=== PATIENT | female | born 1960 | race African-American/Black ===

== ENCOUNTER 2017-08-25 08:53 | Emergency (ER) | payer MEDICARE ==
[~2017-08-25] VITALS: Ht 162.6 cm; Wt 63.5 kg
--- NOTE | 2017-08-25 08:58 | NUR ---
C/O NECK, BACK, LEFT ELBOW, BILATERAL KNEE PAIN S/P SLIPPED AND FALL AT [facility] 2 HRS AGO. NO KO. A/OX4, NAD VSS RR EVEN AND UNLABORED. PENDING ER M DEVALUATION
[2017-08-25] MEDS ORDERED: IBUPROFEN 600 MG TABLET PO ONE ×2 (10:00→10:01)
--- NOTE | 2017-08-25 10:31 | NUR ---
PT. VERBALIZED UNDERSTANDING OF AFTERCARE INSTRUCTIONS.GIVEN MOTRIN 600 MG POPatient discharged to home in stable condition. Written and verbal after care instructions given. Patient verbalizes understanding of instruction.
[2017-08-25 10:34] VITALS: BP 134/68
== END 2017-08-25 10:34 | disposition home or self-care (01) ==
LOC: ER 08:59
DX: S13.9XXA Sprain of joints and ligaments of unspecified parts of neck, initial encounter (principal); Z98.890 Other specified postprocedural states; W01.0XXA Fall on same level from slipping, tripping and stumbling without subsequent striking against object, initial encounter; Y93.89 Activity, other specified; Y92.89 Other specified places as the place of occurrence of the external cause; Y99.8 Other external cause status
CPT/HCPCS: 72040-TC; 73030-TC; 73080-TC; 73564-TC; A4606; Z7610

== ENCOUNTER 2017-12-26 16:06 | Emergency (ER) | payer MEDICARE ==
[~2017-12-26] VITALS: Ht 180.3 cm; Wt 0.5 kg
[2017-12-26 17:44] LABS: APPEARANCE,URINE Clear (CLEAR); BILIRUBIN,URINE Negative (NEGATIVE); BLOOD, URINE Negative Ery/uL (NEGATIVE); COLOR,URINE Yellow (YELLOW); KETONES,URINE Negative (NEGATIVE); LEUKOCYTE ESTERASE ,URINE Negative (NEGATIVE); NITRITE, URINE Negative (NEGATIVE); PH,URINE 7.5 (5.0-8.0); PROTEIN,URINE Negative (NEGATIVE); UGLUCOSE Negative (NEGATIVE)
[2017-12-26 18:07] LABS: BACTERIA,URINE Few /HPF (None Seen); CALCIUM OXALATE CRYSTALS,UR Few /HPF (None Seen); RBC,URINE 0-2 /HPF (0-2); SQUAMOUS EPITHELIAL CELL,UR Few /HPF (None Seen); URINE AMORPHOUS URATE Few /HPF (None Seen); WBC,URINE 0-2 /HPF (0-3)
--- NOTE | 2017-12-26 18:47 | NUR ---
Pt discharged, refused papers. Md spoke with patient and gave recommendations. Pt verbalized understanding.
[2017-12-26 18:50] VITALS: BP 141/92
== END 2017-12-26 18:51 | disposition home or self-care (01) ==
LOC: ER 16:07
DX: N32.89 Other specified disorders of bladder (principal); R42 Dizziness and giddiness; R35.0 Frequency of micturition; R10.32 Left lower quadrant pain; R10.12 Left upper quadrant pain; Z98.890 Other specified postprocedural states; Z88.1 Allergy status to other antibiotic agents; Z87.440 Personal history of urinary (tract) infections
CPT/HCPCS: 81001; 87086; 99284; A4606; 81000-TC; Z7610

== ENCOUNTER 2018-11-27 06:22 | Emergency (ER) | payer OTHER, MEDICARE ==
[~2018-11-27] VITALS: Ht 160 cm; Wt 54.4 kg
[2018-11-27 06:29] VITALS: BP 144/89
[2018-11-27] MEDS ORDERED: diphenhydrAMINE HCL 25 MG CAPSULE ONE (06:40)
[2018-11-27] MEDS: diphenhydrAMINE HCL ELIX 25 MG/10 ML UDC PO ONE (06:43)
== END 2018-11-27 06:56 | disposition home or self-care (01) ==
LOC: ER 06:22
DX: T63.461A Toxic effect of venom of wasps, accidental (unintentional), initial encounter (principal); Z98.890 Other specified postprocedural states; Z60.2 Problems related to living alone; Z88.1 Allergy status to other antibiotic agents; Y92.89 Other specified places as the place of occurrence of the external cause
CPT/HCPCS: 99282; Q0163